=== PATIENT | male | born 1955 | race Caucasian/White ===

== ENCOUNTER 2022-01-03 10:42 | Emergency (ER) | payer MEDICARE, OTHER, SELFPAY ==
[2022-01-03 11:04] VITALS: BP 164/80; PULSE 58; RESP 16; TEMP 36.4; O2SAT 96; BMI 36.2
--- NOTE | 2022-01-03 11:50 | W.ED.ABDPA2 ---
Documented by User: JO Belle 01/04/22 07:31 HPI - Abdominal Pain General: Chief Complaint: Abdominal Pain Stated Complaint: n/v, sent by urgent care Time Seen by Provider: 01/03/22 11:14 History of Present Illness: Patient is a 66 male who comes to the ED with abdominal pain. Symptoms started this morning when he woke up. He felt pain in his left lower quadrant of the abdomen. Pain has progressed throughout the morning. He rates the pain currently a 7 out of 10. Pain radiates from the left lower quadrant into left lower back. He also started developing some nausea and vomiting this morning as well. He has not eaten anything this morning and says he threw up just bile. He has never had any abdominal surgeries. Denies any dysuria or hematuria. Denies any past kidney stones. Associated Symptoms: Reports nausea and vomiting; Denies chills, constipation, diarrhea, dysuria, fever(s), hematochezia and hematuria Review of Systems Const: Denies: fever(s), chills or fatigue Eyes: Denies: change in vision or eye discomfort ENMT: Denies: throat pain, odynophagia, nasal discharge or nasal congestion Card: Denies: chest pain, palpitations, edema, swelling of feet/ankles, dyspnea on exertion or orthopnea Resp: Denies: dyspnea, productive cough or non-productive cough GI: Reports: abdominal pain (Left lower quadrant), nausea and vomiting; Denies: diarrhea, constipation or hematochezia : Denies: flank pain, difficulty urinating, dysuria or hematuria Musc: Denies: neck pain, back pain or extremity swelling Skin/Breast: Denies: rash or new lesions Neuro: Denies: headache(s), numbness in extremities or weakness in extremities [facility] ED PFSH: Medical History (Updated 01/04/22 @ 07:28 by JO Belle) No pertinent family history Surgical History (Updated 01/04/22 @ 07:28 by JO Belle) No pertinent past surgical history Physical Exam Const: COMMON NORMALS: patient oriented x3 and alert GENERAL APPEARANCE: cooperative HENMT: COMMON NORMALS: normocephalic HEAD & SCALP: normocephalic MOUTH: Normal oral and palatal mucosa present THROAT: posterior oropharynx normal and uvula midline Neck/C-Spine: COMMON NORMALS: supple GENERAL: Yes normal visual inspection Resp: COMMON NORMALS: normal respiratory effort, No retractions, No use of accessory muscles and clear to auscultation bilaterally AUSCULTATION: clear to auscultation bilaterally Cardio: COMMON NORMALS: regular rate, regular rhythm, S1 normal heart sound present, S2 normal heart sound present, No gallops present (Cardio), No clicks present (Cardio), No murmurs present (Cardio) and Peripheral pulses 2+ throughout RATE: regular rate RHYTHM: regular rhythm HEART SOUNDS: S1 normal heart sound present and S2 normal heart sound present PERIPHERAL PULSES: Peripheral pulses 2+ throughout GI: COMMON NORMALS: Normal to inspection, nondistended, normoactive bowel sounds present, Soft to palpation, non-tender and no masses PALPATION: Yes Soft to palpation : COMMON NORMALS: Yes no CVA tenderness BLADDER/KIDNEY EXAM: Yes no CVA tenderness Back/Pelvis: COMMON NORMALS: no CVA tenderness Extremity: COMMON NORMALS: normal to inspection Neuro: COMMON NORMALS: patient oriented x3 SENSORIUM/ORIENTATION: Yes alert GAIT: Yes Normal gait present Skin: GENERAL SKIN EXAM: dry skin Course Vital Signs: Vital signs: Vital Signs Temperature 97.5 F L 01/03/22 11:04 Pulse Rate 58 L 01/03/22 11:04 Respiratory Rate 16 01/03/22 12:34 Blood Pressure 164/80 01/03/22 11:04 Pulse Oximetry 96 01/03/22 11:04 Oxygen Delivery Me thod 01/03/22 11:04 MDM - Abdominal Pain Medical Decision Making Patient is a 66-year-old male comes to the ED with left lower abdominal pain that radiates to the left lower back. Symptoms started this morning endorse having some nausea and vomiting as well. Vitals are stable. Exam is benign patient has no abdominal tenderness or any CVA tenderness. Rest of exam is benign. UA shows a lot of blood, white blood cell count of 12.6 and the rest of CBC and CMP are unremarkable. CT the abdomen shows 2 obstructing left sided kidney stones measuring 4 mm. One is proximal and the other 1 is at the distal UVJ. Patient was given a dose of morphine and his pain was well controlled. I placed an order with case management for patient be referred to Dr. Casiano for follow-up on kidney stones. Patient was stable for discharge home and sent home with a prescription for hydrocodone for acute pain, naproxen and Zofran. Strict return ED precautions given. Patient understood and agreed with plan. Lab Data I reviewed the patient's lab results. : 01/03/22 12:49 01/03/22 12:49 Labs/Radiology: Radiology Impressions Abdomen/Pelvis CT 01/03/22 12:34 IMPRESSION: 1. Obstructing LEFT proximal ureteral calculus measuring 4.2 mm. Additional obstructing LEFT distal UVJ calculus measuring 4.1 mm. 2. Mild LEFT hydronephrosis with inflammatory stranding about the LEFT kidney. 3. Numerous tiny dependent calculi within the bladder. 4. Enlarged prostate measuring 4.2 x 5.2cm. Correlation PSA. 5. Normal appendix in the RIGHT lower quadrant. 6. Small esophageal hiatal hernia. Notified JO Belle at 01/03/2022 1:35 PM. Laboratory Results WBC 12.6 10^3/uL (4.0-10.0) H 01/03/22 12:49 RBC 5.54 10^6/uL (4.1-5.3) H 01/03/22 12:49 Hgb 16.5 g/dL (11.7-16.6) 01/03/22 12:49 Hct 51.3 % (42.0-52.0) 01/03/22 12:49 MCV 92.6 fl (80-94) 01/03/22 12:49 MCH 29.8 pg (28.0-34.0) 01/03/22 12:49 MCHC 32.2 g/dL (30.0-36.0) 01/03/22 12:49 RDW 13.3 % (12.1-15.1) 01/03/22 12:49 Plt Count 265 10^3/cmm (130-400) 01/03/22 12:49 MPV 9.6 fL (7.4-10.4) 01/03/22 12:49 Neut % (Auto) 85.7 % 01/03/22 12:49 Lymph % (Auto) 9.3 % 01/03/22 12:49 Kinney % (Auto) 3.9 % 01/03/22 12:49 Eos % (Auto) 0.1 % 01/03/22 12:49 Baso % (Auto) 0.4 % 01/03/22 12:49 Neut # (Auto) 10.78 10^3/uL (1.8-7.7) H 01/03/22 12:49 Lymph # (Auto) 1.2 10^3/uL (0.8-4.8) 01/03/22 12:49 Kinney # (Auto) 0.5 10^3/uL (0.2-0.9) 01/03/22 12:49 Eos # (Auto) 0.0 10^3/uL (0.0-0.8) 01/03/22 12:49 Baso # (Auto) 0.1 10^3/uL (0.0-0.1) 01/03/22 12:49 Nucleated RBC % (auto) 0 % 01/03/22 12:49 Nucleated RBCs # 0.0 /100WBC 01/03/22 12:49 Sodium 135 mmol/L (136-145) L 01/03/22 12:49 Potassium 5.0 mmol/L (3.5-5.1) 01/03/22 12:49 Chloride 105 mmol/L (98-107) 01/03/22 12:49 Carbon Dioxide 17 mmol/L (22-29) L 01/03/22 12:49 Anion Gap 18.0 (5-19) 01/03/22 12:49 BUN 23 mg/dL (8-23) 01/03/22 12:49 Creatinine 1.2 mg/dL (0.7-1.2) 01/03/22 12:49 GFR Calculation 60.2 mL/min (90-130) L 01/03/22 12:49 Glucose 114 mg/dL (65-115) 01/03/22 12:49 Calculated Osmolality 285 mOsm/kg (285-295) 01/03/22 12:49 Calcium 10.3 mg/dL (8.5-10.5) 01/03/22 12:49 Total Bilirubin 0.6 mg/dL (0.15-1.2) 01/03/22 12:49 AST 35 U/L (0-40) 01/03/22 12:49 ALT 38 U/L (0-41) 01/03/22 12:49 Alkaline Phosphatase 104 U/L (40-130) 01/03/22 12:49 Total Protein 8.1 g/dL (6.6-8.7) 01/03/22 12:49 Albumin 4.1 g/dL (3.5-5.2) 01/03/22 12:49 Globulin 4.0 g/dL (1.3-4.6) 01/03/22 12:49 Lipase 47 U/L (13-60) 01/03/22 12:49 Urine Color Yellow (Yellow) 01/03/22 11:31 Urine Appearance Clear (CLEAR) 01/03/22 11:31 Urine pH 5 (5-7) 01/03/22 11:31 Ur Specific [place] 1.025 (1.005-1.030) 01/03/22 11:31 Urine Protein Trace (Negative) 01/03/22 11:31 Urine Glucose (UA) Norm (Normal) 01/03/22 11:31 Urine Ketones Negative (Negative) 01/03/22 11:31 Urine Blood 3+ (Negative) H 01/03/22 11:31 Urine Nitrate Negative (Negative) 01/03/22 11:31 Urine Bilirubin 1+ (Negative) H 01/03/22 11:31 Urine Urobilinogen Norm mg/dL (Negative) 01/03/22 11:31 Ur Leukocyte Esterase Negative (Negative) 01/03/22 11:31 Urine RBC 25-40 /hpf (0-2) H 01/03/22 11:31 Urine WBC 5-10 /hpf (0-5) H 01/03/22 11:31 Ur Squamous Epith Cells 0-4 /hpf (0-5) H 01/03/22 11:31 Amorphous Sediment Not Reportable 01/03/22 11:31 Urine Bacteria 4+ /hpf (NONE) H 01/03/22 11:31 Discharge Plan Discharge Patient Disposition: Home Clinical Impression: Kidney stone on left side Condition: Stable Prescriptions: New naproxen 500 mg tablet 500 mg PO BID PRN (Reason: pain) Qty: 20 0RF ondansetron 4 mg tablet,disintegrating 4 mg PO Q8H PRN (Reason: nausea and vomiting) Qty: 15 0RF No Action levothyroxine [Synthroid] 75 mcg tablet 75 mcg PO DAILY meloxicam 7.5 mg tablet 7.5 mg PO DAILY Discharge Orders: Discharge ED (Routine); Ordered 01/03/22 Ordered By: Kt Frazier Discharge Diet: Regular Discharge Activity: Increase activity as tolerated Patient Instructions: Kidney Stones (ED), Opioid Safety Activity Restrictions/Additional Instructions: Follow-up with medical provider as directed. Case management should be contacting you in the next several days to set up an appointment with Dr. Casiano the urologist. Strain urine to catch stone and drink lots of fluid to stay hydrated and help pass stone. Take medications as prescribed. You can take ibuprofen or Aleve for any pain or fevers. Return to the ER or your medical provider if condition worsens. Please read and understand discharge instructions. If any questions, please ask. Coding Level of Care Code ED Tower Technician for Chg Fwd Exam Comprehensive Documented by User: Maynor Feliciano DO 01/05/22 06:45 HPI - Abdominal Pain General: Chief Complaint: Abdominal Pain Stated Complaint: n/v, sent by urgent care Time Seen by Provider: 01/03/22 11:14 [facility] ED PFSH: Medical History (Updated 01/04/22 @ 07:28 by JO Belle) No pertinent family history Surgical History (Updated 01/04/22 @ 07:28 by JO Belle) No pertinent past surgical history Course Vital Signs: Vital signs: Vital Signs Temperature 97.5 F L 01/03/22 11:04 Pulse Rate 58 L 01/03/22 11:04 Respiratory Rate 16 01/03/22 12:34 Blood Pressure 164/80 01/03/22 11:04 Pulse Oximetry 96 01/03/22 11:04 Oxygen Delivery Me thod 01/03/22 11:04 MDM - Abdominal Pain Medical Decision Making Patient is a 66-year-old male comes to the ED with left lower abdominal pain that radiates to the left lower back. Symptoms started this morning endorse having some nausea and vomiting as well. Vitals are stable. Exam is benign patient has no abdominal tenderness or any CVA tenderness. Rest of exam is benign. UA shows a lot of blood, white blood cell count of 12.6 and the rest of CBC and CMP are unremarkable. CT the abdomen shows 2 obstructing left sided kidney stones measuring 4 mm. One is proximal and the other 1 is at the distal UVJ. Patient was given a dose of morphine and his pain was well controlled. I placed an order with case management for patient be referred to Dr. Casiano for follow-up on kidney stones. Patient was stable for discharge home and sent home with a prescription for hydrocodone for acute pain, naproxen and Zofran. Strict return ED precautions given. Patient understood and agreed with plan. Chart reviewed and patient discussed with midlevel. Agree with assessment and plan. Lab Data : 01/03/22 12:49 01/03/22 12:49 Labs/Radiology: Radiology Impressions Abdomen/Pelvis CT 01/03/22 12:34 IMPRESSION: 1. Obstructing LEFT proximal ureteral calculus measuring 4.2 mm. Additional obstructing LEFT distal UVJ calculus measuring 4.1 mm. 2. Mild LEFT hydronephrosis with inflammatory stranding about the LEFT kidney. 3. Numerous tiny dependent calculi within the bladder. 4. Enlarged prostate measuring 4.2 x 5.2cm. Correlation PSA. 5. Normal appendix in the RIGHT lower quadrant. 6. Small esophageal hiatal hernia. Notified JO Belle at 01/03/2022 1:35 PM. Laboratory Results WBC 12.6 10^3/uL (4.0-10.0) H 01/03/22 12:49 RBC 5.54 10^6/uL (4.1-5.3) H 01/03/22 12:49 Hgb 16.5 g/dL (11.7-16.6) 01/03/22 12:49 Hct 51.3 % (42.0-52.0) 01/03/22 12:49 MCV 92.6 fl (80-94) 01/03/22 12:49 MCH 29.8 pg (28.0-34.0) 01/03/22 12:49 MCHC 32.2 g/dL (30.0-36.0) 01/03/22 12:49 RDW 13.3 % (12.1-15.1) 01/03/22 12:49 Plt Count 265 10^3/cmm (130-400) 01/03/22 12:49 MPV 9.6 fL (7.4-10.4) 01/03/22 12:49 Neut % (Auto) 85.7 % 01/03/22 12:49 Lymph % (Auto) 9.3 % 01/03/22 12:49 Kinney % (Auto) 3.9 % 01/03/22 12:49 Eos % (Auto) 0.1 % 01/03/22 12:49 Baso % (Auto) 0.4 % 01/03/22 12:49 Neut # (Auto) 10.78 10^3/uL (1.8-7.7) H 01/03/22 12:49 Lymph # (Auto) 1.2 10^3/uL (0.8-4.8) 01/03/22 12:49 Kinney # (Auto) 0.5 10^3/uL (0.2-0.9) 01/03/22 12:49 Eos # (Auto) 0.0 10^3/uL (0.0-0.8) 01/03/22 12:49 Baso # (Auto) 0.1 10^3/uL (0.0-0.1) 01/03/22 12:49 Nucleated RBC % (auto) 0 % 01/03/22 12:49 Nucleated RBCs # 0.0 /100WBC 01/03/22 12:49 Sodium 135 mmol/L (136-145) L 01/03/22 12:49 Potassium 5.0 mmol/L (3.5-5.1) 01/03/22 12:49 Chloride 105 mmol/L (98-107) 01/03/22 12:49 Carbon Dioxide 17 mmol/L (22-29) L 01/03/22 12:49 Anion Gap 18.0 (5-19) 01/03/22 12:49 BUN 23 mg/dL (8-23) 01/03/22 12:49 Creatinine 1.2 mg/dL (0.7-1.2) 01/03/22 12:49 GFR Calculation 60.2 mL/min (90-130) L 01/03/22 12:49 Glucose 114 mg/dL (65-115) 01/03/22 12:49 Calculated Osmolality 285 mOsm/kg (285-295) 01/03/22 12:49 Calcium 10.3 mg/dL (8.5-10.5) 01/03/22 12:49 Total Bilirubin 0.6 mg/dL (0.15-1.2) 01/03/22 12:49 AST 35 U/L (0-40) 01/03/22 12:49 ALT 38 U/L (0-41) 01/03/22 12:49 Alkaline Phosphatase 104 U/L (40-130) 01/03/22 12:49 Total Protein 8.1 g/dL (6.6-8.7) 01/03/22 12:49 Albumin 4.1 g/dL (3.5-5.2) 01/03/22 12:49 Globulin 4.0 g/dL (1.3-4.6) 01/03/22 12:49 Lipase 47 U/L (13-60) 01/03/22 12:49 Urine Color Yellow (Yellow) 01/03/22 11:31 Urine Appearance Clear (CLEAR) 01/03/22 11:31 Urine pH 5 (5-7) 01/03/22 11:31 Ur Specific [place] 1.025 (1.005-1.030) 01/03/22 11:31 Urine Protein Trace (Negative) 01/03/22 11:31 Urine Glucose (UA) Norm (Normal) 01/03/22 11:31 Urine Ketones Negative (Negative) 01/03/22 11:31 Urine Blood 3+ (Negative) H 01/03/22 11:31 Urine Nitrate Negative (Negative) 01/03/22 11:31 Urine Bilirubin 1+ (Negative) H 01/03/22 11:31 Urine Urobilinogen Norm mg/dL (Negative) 01/03/22 11:31 Ur Leukocyte Esterase Negative (Negative) 01/03/22 11:31 Urine RBC 25-40 /hpf (0-2) H 01/03/22 11:31 Urine WBC 5-10 /hpf (0-5) H 01/03/22 11:31 Ur Squamous Epith Cells 0-4 /hpf (0-5) H 01/03/22 11:31 Amorphous Sediment Not Reportable 01/03/22 11:31 Urine Bacteria 4+ /hpf (NONE) H 01/03/22 11:31 Discharge Plan Discharge Patient Disposition: Home Clinical Impression: Kidney stone on left side Condition: Stable Prescriptions: New naproxen 500 mg tablet 500 mg PO BID PRN (Reason: pain) Qty: 20 0RF ondansetron 4 mg tablet,disintegrating 4 mg PO Q8H PRN (Reason: nausea and vomiting) Qty: 15 0RF No Action levothyroxine [Synthroid] 75 mcg tablet 75 mcg PO DAILY meloxicam 7.5 mg tablet 7.5 mg PO DAILY Discharge Orders: Discharge ED (Routine); Ordered 01/03/22 Ordered By: Kt Frazier Discharge Diet: Regular Discharge Activity: Increase activity as tolerated Patient Instructions: Kidney Stones (ED), Opioid Safety Activity Restrictions/Additional Instructions: Follow-up with medical provider as directed. Case management should be contacting you in the next several days to set up an appointment with Dr. Casiano the urologist. Strain urine to catch stone and drink lots of fluid to stay hydrated and help pass stone. Take medications as prescribed. You can take ibuprofen or Aleve for any pain or fevers. Return to the ER or your medical provider if condition worsens. Please read and understand discharge instructions. If any questions, please ask. Coding Level of Care Code ED Tower Technician for Pauly Fwd Exam Comprehensive
[2022-01-03 12:34] VITALS: RESP 16
[2022-01-03] MEDS: morphine 4 mg/mL SDV 1 mL IM (12:34)
--- NOTE | 2022-01-03 12:34 | CT_ITS ---
WS: [id number] CT ABDOMEN PELVIS TECHNIQUE: Noncontrast CT of the abdomen and pelvis with coronal and sagittal reformatted images. CLINICAL INFORMATION: LLQ abdominal pain COMPARISON: None. DLP: 1360.[address] scans at [facility] use at least one of these dose optimization techniques: automated e xposure control; mA and/or kV adjustment per patient size (includes targeted exams where dose is matc hed to clinical indication); or iterative reconstruction. FINDINGS: Bibasilar atelectasis. Small esophageal hiatal hernia. Noncontrast liver is normal. Gallbladder appea rs normal. Noncontrast pancreas is unremarkable. Normal noncontrast spleen. Adrenal glands are normal . Obstructing LEFT proximal ureteral calculus measuring 4.2 mm with mild LEFT hydronephrosis. Additio nal calculus in the distal LEFT ureter near the UVJ measuring 4.1 mm. Numerous small calculi in the d ependent portion of the bladder. Enlarged calcified prostate with indentation on the bladder. Heterogeneous prostate measures 4.2 x 5. 2 CM. Normal appendix in the RIGHT lower quadrant. Fat-containing umbilical hernia. Normal caliber ab dominal aorta. Fat-containing inguinal hernias RIGHT greater than LEFT. No abdominal lymphadenopathy. No inguinal lymphadenopathy. Mild lumbar curve. Hypertrophic changes thoracic spine. Disc space narrowing worse at L3-L4 vacuum di sc phenomenon. CT/CT abdomen pelvis wo con [id number] IMPRESSION: 1. Obstructing LEFT proximal ureteral calculus measuring 4.2 mm. Additional ob structing LEFT distal UVJ calculus measuring 4.1 mm. 2. Mild LEFT hydronephrosis with inflammatory stranding about the LEFT kidney. 3. Numerous tiny dependent calculi within the bladder. 4. Enlarged prostate measuring 4.2 x 5.2cm. Correlation PSA. 5. Normal appendix in the RIGHT lower quadrant. 6. Small esophageal hiatal hernia. Notified JO Belle at 01/03/2022 1:35 PM.
[2022-01-03] MEDS: ondansetron 2 mg/ML SDV 2 mL 4 MG IM (12:35)
[2022-01-03 12:53] LABS: Basophils # 0.1 10^3/uL (0.0-0.1); Basophils % 0.4 %; Eosinophils % 0.1 %; Hematocrit 51.3 % (42.0-52.0); Hemoglobin 16.5 g/dL (11.7-16.6); Lymphocytes # 1.2 10^3/uL (0.8-4.8); Lymphocytes % 9.3 %; Mean Corpuscular HGB Conc 32.2 g/dL (30.0-36.0); Mean Corpuscular Hemoglobin 29.8 pg (28.0-34.0); Mean Corpuscular Volume 92.6 fl (80-94); Mean Platelet Volume 9.6 fL (7.4-10.4); Monocytes # 0.5 10^3/uL (0.2-0.9); Monocytes % 3.9 %; Neutrophils # 10.78 10^3/uL (1.8-7.7); Neutrophils % 85.7 %; Nucleated Red Blood Cells % 0 %; Platelet Count 265 10^3/cmm (130-400); Red Blood Count 5.54 10^6/uL (4.1-5.3); Red Cell Distribution Width 13.3 % (12.1-15.1); White Blood Count 12.6 10^3/uL (4.0-10.0)
[2022-01-03 12:55] LABS: Glucose Urine UA Norm (Normal); Ketones Urine Negative (Negative); Protein Urine Trace (Negative); Specific Gravity, Urine 1.025 (1.005-1.030); Urine Appearance Clear (CLEAR); Urine Color Yellow (Yellow); pH Urine 5 (5-7)
[2022-01-03 12:56] LABS: Add Urine Microscopic? YES; Bilirubin Urine 1+ (Negative); Blood Urine 3+ (Negative); Leukocyte Esterase Urine Negative (Negative); Nitrate Urine Negative (Negative); Urobilinogen Urine Norm (Negative)
[2022-01-03 12:57] LABS: Add Urine Culture? Yes
[2022-01-03 12:58] LABS: Bacteria Urine 4+ /hpf; RBC Urine 25-40 /hpf (0-2); Squamous Epithelial Cell Urine 0-4 /hpf (0-5)
[2022-01-03 13:13] LABS: Albumin Level 4.1 g/dL (3.5-5.2); Alkaline Phosphatase 104 U/L (40-130); Blood Urea Nitrogen 23 mg/dL (8-23); Calcium 10.3 mg/dL (8.5-10.5); Carbon Dioxide 17 mmol/L (22-29); Chloride 105 mmol/L (98-107); Glomerular Filtration Rate 60.2 mL/min (90-130); Glucose 114 mg/dL (65-115); Lipase 47 U/L (13-60); Osmolality Calculated 285 mOsm/kg (285-295); Sodium 135 mmol/L (136-145); Total Bilirubin 0.6 mg/dL (0.15-1.2); Total Protein 8.1 g/dL (6.6-8.7)
[2022-01-03 13:18] LABS: Alanine Aminotransferase 38 U/L (0-41); Aspartate Amino Transferase 35 U/L (0-40)
--- NOTE | 2022-01-03 14:04 | PC.SOCIAL ---
Addendum entered by Sunitha Harris 02/09/22 13:32: Patient had a follow up appointment scheduled with urology - patient did attend appointment. Original Note: Urology Referral Referral sent to [facility] urology clinic, clinic to contact patient with appointment date and time.
== END 2022-01-03 14:02 | disposition home or self-care (01) ==
PROVIDERS: Emergency Provider Physician Assistant
DX: N20.0 Calculus of kidney (principal)
CPT/HCPCS: 74176; 80053; 81001; 83690; 85025; 87086; 96372; 99285; J2270; J2405

== ENCOUNTER 2022-01-05 13:08 | Outpatient (CLI) | payer MEDICARE, OTHER, SELFPAY ==
--- NOTE | 2022-01-05 13:20 | XR_ITS ---
WS: [id number] Exam: XR KUB [id number] Date/Time of Exam: 01/05/2022 1:21 PM Reason For Exam: stones No bowel obstruction or free air. Nonspecific bilateral pelvic calcifications. No sign of organ enlar gement. Nonacute bowel gas pattern. Degenerative changes and spondylosis of the lumbar spine. Bony ch anges in the pelvis to suggest diffuse idiopathic skeletal hyperostosis. There may be early changes o f ankylosing spondylitis in the visualized lower thoracic and upper lumbar spine. The SI joints are p artially fused. XR/XR KUB [id number] IMPRESSION: 1. No acute abdominal process noted. 2. Bony changes that may indicate ankylosing spondylitis and diffuse idiopathic skeletal hyperostosis.
== END 2022-01-05 13:09 | disposition home or self-care (01) ==
LOC: RAD 13:11
PROVIDERS: PCP Family Medicine; Visit Provider Urology
DX: N20.2 Calculus of kidney with calculus of ureter
CPT/HCPCS: 74018; 81003; 99203

== ENCOUNTER 2022-01-26 12:46 | Outpatient (CLI) | payer MEDICARE, OTHER, SELFPAY ==
--- NOTE | 2022-01-26 12:55 | XR_ITS ---
WS: [id number] EXAMINATION: XR KUB [id number] REASON FOR EXAM: Stones COMPARISON: 01/05/2022 ORDER DATE: 01/26/2022 12:57 PM FINDINGS: There is a nonspecific colonic gas pattern with scattered fecal content and gas. There is no sign of significant small bowel dilation. 2 Millimeter calcification superimposes the lower pole of the righ t kidney, possible similar calcification on the left. Moderate degenerative spine changes with disc n arrowing. XR/XR KUB [id number] IMPRESSION: Possible small renal calculi
== END 2022-01-26 12:47 | disposition home or self-care (01) ==
LOC: RAD 12:48
PROVIDERS: PCP Family Medicine; Visit Provider Urology
DX: N20.0 Calculus of kidney (principal)
CPT/HCPCS: 74018; 99214

== ENCOUNTER 2022-02-02 05:45 | Day surgery (SDC) | payer MEDICARE, OTHER, SELFPAY ==
[2022-02-01 10:46] VITALS: BMI 35.6
--- NOTE | 2022-02-01 11:09 | P.ANESASSM_ITS ---
Pre-Anesthetic Assessment Height/Weight: Height 1.91 m Weight 129.274 kg Operation Date: 02/02/22 08:35 Proposed Procedures p CYSTOLITHALOPAXY LEFT RETROGRADE PYELOGRAM 57593 07014 MODIFIER 26,N21.0,N20.9(Not Applicable) - Maximo Casiano MD s Cystoscopy(Not Applicable) - Maximo Casiano MD s Retrograde Pyelogram(Left) - Maximo Casiano MD Familial anesthetic complications: Patient states he has deviated trachea and an anesthesiologist was unable to place an ETT for an ear procedure and they had to abort the procedure. Since then he's had to have all his procedures awake under local anesthetic. 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 Was told the tube wouldn't pass and he had very small structure. he did not require hospitalization after event d/t any airway trauma, no steroids, and no bleeding or sore throat. He is not sure if he was difficult to mask or not. He doesn't recall being told that he was difficult to mask Was Beta Dipak taken within 24 hours: N/A Was Clonidine taken within 24 hours: N/A Social No alcohol and No tobacco Exam alert, oriented x 3, clear to auscultation bilaterally and regular rate & rhythm Airway Dentition: full Pulmonary None reported CV/HEM None reported None reported Hepatic None reported GI None reported Metabolic Thyroid Disease Neuropsych None reported Anesthetic Plan ASA status: 3 Anesthesia: General Risk of > 500 ml blood loss (7ml/kg in children): No Other Pertinent Information If unable to use LMA for procedure, awake ETT may be required, consider spinal as well Medications/Allergies Home Medications Medication Instructions Recorded Confirmed Last Taken Type levothyroxine 75 mcg tablet 75 mcg PO DAILY 01/03/22 02/01/22 02/01/22 History (Synthroid) meloxicam 7.5 mg tablet 7.5 mg PO DAILY 01/03/22 02/01/22 02/01/22 History ascorbic acid (vitamin C) 1,000 mg 1 g PO DAILY 01/05/22 02/01/22 Unknown History capsule aspirin 81 mg tablet,delayed 81 mg PO DAILY 01/05/22 02/01/22 02/01/22 History release cholecalciferol (vitamin D3) 50 50 mcg PO DAILY 01/05/22 02/01/22 02/01/22 History mcg (2,000 unit) capsule tamsulosin 0.4 mg capsule 0.4 mg PO QDAY #30 caps 01/26/22 02/01/22 02/01/22 Rx Allergies Allergy/AdvReac Type Severity Reaction Status Date / Time hydrocodone Allergy ADR-Irritable/violent Verified 02/01/22 10:46 hiccups for days steroids Allergy Intermediate ADR-Irritab Uncoded 01/26/22 13:34 le/hiccups [facility] Anesthesia Medical History (Updated 02/01/22 @ 10:39 by Nakita Greer) No pertinent family history Urolithiasis Surgical History (Updated 02/01/22 @ 10:39 by Nakita Greer) No pertinent past surgical history Family History Father Dementia Mother , AT AGE 84 CHF (congestive heart failure) Social History Smoking and tobacco status: never smoked Alcohol intake: never Marital status: Current occupational status: employed History of recent travel: No Data Anesthesia Cardiac Studies: No Data to Display
--- NOTE | 2022-02-02 | XRR_ITS ---
PROCEDURE INFORMATION: Exam: XR Abdomen Exam date and time: 02/02/2022 6:12 AM Age: 66 years old Clinical indication: Screening exam; Other: Pre operatvie; Additional info: Renhal calculi TECHNIQUE: Imaging protocol: Radiologic exam of the abdomen. Views: Frontal supine view of the abdomen. 1 View. Total images: 1 COMPARISON: 1. CR XR KUB [id number] 01/26/2022 12:[address] abdomen pelvis wo con [id number] 01/03/2022 12:51 PM FINDINGS: Gastrointestinal tract: Bowel gas pattern is nondistended and nonobstructive. Vasculature: Incidental phleboliths noted. Bones/joints: Spinal degenerative changes are evident. Vague 5 mm density projecting adjacent to the tip of the left transverse process of L3 felt to represent ureteral calculus as seen on prior CT. XR/XR KUB [id number] IMPRESSION: 1. Vague 5 mm density projecting adjacent to the tip of the left transverse process of L3 felt to represent ureteral calculus as seen on prior CT. 2. Normal bowel gas pattern
[2022-02-02 06:04] VITALS: BP 141/85; PULSE 66; RESP 18; TEMP 36.6; O2SAT 95
[2022-02-02] MEDS: sodium chloride 0.9% 1,000 ML 30 ML IV (06:25)
--- NOTE | 2022-02-02 06:37 | P.ANESUD_ITS ---
Pre-Anesthetic Update Pre-Anesthetic Assessment: Date of Surgery/Procedure: 02/02/22 Preop Marzena gnosis: Cystolithiasis, left ureteral calculus Proposed Procedure: Operation Date: 02/02/22 07:00 Proposed Procedures p CYSTOLITHALOPAXY LEFT RETROGRADE PYELOGRAM 76356 38001 MODIFIER 26,N21.0,N20.9(Not Applicable) - Maximo Casiano MD s Cystoscopy(Not Applicable) - Maximo Casiano MD s Retrograde Pyelogram(Left) - Maximo Casiano MD Any changes to Pre-Anesthetic Assessment?: No Last Intake: Intake Last Liquid Date 02/01/22 Last Liquid Time 18:00 Last Solid Date 02/01/22 Last Solid Time 18:00 Vitals: Temperature 97.8 F 02/02/22 06:04 Temperature Source Temporal Artery S can 02/02/22 06:04 Pulse Rate 66 02/02/22 06:04 Respiratory Rate 18 02/02/22 06:04 Blood Pressure 141/85 02/02/22 06:04 Blood Pressure Mariah n 103 02/02/22 06:04 Pulse Oximetry 95 02/02/22 06:04 Oxygen Delivery Me thod 02/02/22 06:04 Exam: Pre-Anes Outpt Exam: alert, oriented x 3, clear to auscultation bilaterally and regular rate & rhythm Cardiac Studies: No Data to Display
--- NOTE | 2022-02-02 06:43 | P.HPUD_ITS ---
Surgery/Procedure H&P Update DATE OF PROCEDURE: February 02, 2022 DATE H&P PERFORMED: 01/26/22 H&P UPDATE INFORMATION: I have reviewed H&P completed within last 30 days, I have examined patient prior to procedure, No changes to prior documentation and H&P is in [facility] EMR on date indicated CHANGES TO PREVIOUS DOCUMENTATION: There is a hint of a calcification slightly higher than I would have expected based on the previous CT scan findings in the area of the left proximal ureter. He has not had any pain consistent with renal colic since he left the office. We will rely on the retrograde pyelogram. Ureteroscopy if necessary I reviewed these findings with the patient and his . Also discussed with anesthesia his concerns regarding difficult airway based on his prior experience. They have planned accordingly and are prepared PREOP DIAGNOSIS: Cystolithiasis, left ureteral calculus PLANNED PROCEDURE: Operation Date: 02/02/22 07:00 Proposed Procedures p CYSTOLITHALOPAXY LEFT RETROGRADE PYELOGRAM [id number] MODIFIER 26,N21.0,N20.9(Not Applicable) - Maximo Casiano MD s Cystoscopy(Not Applicable) - Maximo Casiano MD s Retrograde Pyelogram(Left) - Maximo Casiano MD
--- NOTE | 2022-02-02 06:54 | SC_ITS ---
WS: [id number] INTRAOPERATIVE TECHNIQUE: 5 Spot fluoroscopic images for intraoperative purposes. FLUOROSCOPY TIME: 45.2 seconds CLINICAL INFORMATION: stones COMPARISON: None. FINDINGS: LEFT distal ureteroscopy with filling defects in the distal ureter. Stent deployment. SC/C-arm FL for Urology IMPRESSION: Images obtained for intraoperative purposes.
[2022-02-02] MEDS: levofloxacin-dextrose 5 % 500 MG/100 ML PREMIX 100 MG IV (07:00)
--- NOTE | 2022-02-02 07:05 | P.OP_ITS ---
Operative Report Date of procedure: February 02, 2022 Pre-op diagnosis: Cystolithiasis, left ureteral calculus Post-op diagnosis: Cystolithiasis, left ureteral calculus Procedure done: 1. Cystoscopy removal of multiple bladder stones 2. LEFT retrograde ureteropyelogram 3. LEFT ureteroscopy, laser lithotripsy, stent (6 Montserratian by 30 cm double- pigtail without string) Specimens removed/disposition: 1. Bladder stones, many 2. Left ureteral stone fragment Pathology: Bladder stones Left ureteral stone fragments Surgeon: Oh Estimated blood loss: Minimal Urine output: Not measured Complications: None Findings: Anesthesia: MAC Condition: Stable Disposition: PACU Intraoperative findings: * About 10 small stones in the bladder. All were small enough to flush out of the bladder through the cystoscope * Retrograde pyelogram on the left showed: 2 filling defects in the left distal ureter and known proximal to that point. * 2 stones were fragmented with laser lithotripsy and a stent was left indwelling. * Easily bypassable bulbar urethral stricture. Did not require catheterization post Brief History: Mr. Hanson is a very pleasant 66-year-old white male who was recently diagnosed with a small left proximal ureteral stone causing typical renal colic and obstruction on CT scan. On follow-up in the clinic he was found to have multiple stones in the bladder also confirmed on the CT scan that appeared to be more consistent with chronic BPH/obstruction. Cystoscopy confirmed. I could not clearly see the stone in the left proximal ureter. Plan was to do cystolithiasis removal possible cystolitholapaxy and a left retrograde pyelogram and if the stone really was still in place then proceed with ureteroscopy laser lithotripsy. Patient has a history of difficult airway. Anesthesia was consulted before the procedure and is preparing for that with all appropriate measures. Procedure: After routine preoperative evaluation examination and obtaining of informed consent he was taken to the operating suite on 02/02/2022 where anesthesia was administered without difficulty. Appropriate timeout was performed, SCDs confirmed to be functioning, preoperative antibiotics administered, beta-donna protocol confirmed. Prepped and draped in usual sterile fashion in dorsolithotomy position paying careful attention to avoiding pressure points. 21 Montserratian cystoscope with 30 degree lens was introduced into the urethra meatus and advanced into the bladder to videoscopy. He was noted to have a bypassable bulbar urethral stricture bladder was systematically examined. >20 stones were seen in the bladder as expected and flushed through the scope without difficulty with use of the Ellik evacuator.. No more stones remained. An 8 [place]erratian cone-tip catheter was then intubated to the left ureteral orifice for left retrograde ureteropyelogram which demonstrated: There were 2 filling defects in the left distal ureter with some proximal dilation. Filling defects were consistent with stones. The area where this stone had been located on previous imaging was free of any filling defects. No other filling defects proximal to those distal ureteral stones were noted. The pyelocalyceal system did not appear to be significantly dilated. A flexible tip guidewire was then advanced up the left ureter bypassing the stones and curling in the area of the renal pelvis. Distal ureter was dilated with a 15 Montserratian 4 cm balloon with no waist at 6 abad. There was a tight area requiring 6 abad to open. First wire was secured to the drapes as a safety wire and a second wire was passed to facilitate passage of the ureteroscope. 2 stones were encountered in the distal ureter and fragmented completely with a 365 ?m thulium superpulse laser fiber. Most of the fragments flushed around the scope into the bladder. A basket was used to remove the remaining fragments of consequence. Mostly sand. Final passage revealed no fragments. The scope was passed all the way up to the UPJ. The bladder was cleared of the debris with an Ellik evacuator. A 6 [place]ian by 30 cm double-pigtail stent was advanced over the guidewire through the cystoscope into appropriate position as confirmed via fluoroscopy and cystoscopy. Stent was confirmed to be functioning. The urethra was examined as the scope was removed. It was mildly traumatized from passage of the scope at the site of the stricture but it was not severely bleeding; I did not feel that he needed to catheter. He tolerated procedure well without complications and was awakened in the operating room without difficulty and transferred to the PACU in stable condition. PLANS: 1. Anticipate discharge from 2. We will follow-up in about a week with cystoscopy and stent removal in the clinic
[2022-02-02 08:11] VITALS: BP 178/67; PULSE 65; RESP 20; TEMP 36.3; O2SAT 96
[2022-02-02 08:16] VITALS: BP 160/69; PULSE 66; RESP 18; O2SAT 97
[2022-02-02 08:21] VITALS: BP 149/79; PULSE 69; RESP 18; TEMP 36.7; O2SAT 97
[2022-02-02 08:30] VITALS: BP 134/57; PULSE 65; RESP 18; TEMP 36.4; O2SAT 94
--- NOTE | 2022-02-02 08:36 | PC.NURSE ---
spoke with efra in dr mg's office. states nurse will call pt with time
[2022-02-02 08:44] VITALS: BP 147/82; PULSE 59; RESP 18; O2SAT 96
--- NOTE | 2022-02-02 16:33 | ANE.PACU2 ---
Inpatient post-anesthesia follow up: Airway intact: Yes Vital signs: Temperature 97.6 F Pulse Rate 59 Respiratory Rate 18 Blood Pressure 147/82 Pulse Oximetry 96 Oxygen Delivery Me thod Room Air Oxygen Flow Rate Fraction of Inspir ed Oxygen Hydration adequate: Yes Nausea and vomiting: No Pain level: 1 Mental status: Baseline
[2022-02-07 14:04] LABS: Stone Source URETER
[2022-02-07 15:30] LABS: Stone Source BLADDER STONES
== END 2022-02-02 09:15 | disposition home or self-care (01) ==
PROVIDERS: PCP Family Medicine; Visit Provider Urology
PROC: 0TCB8ZZ Extirpation of Matter from Bladder, Via Natural or Artificial Opening Endoscopic (ICD-10-PCS; CPT 52356; principal; 2022-02-02 07:00)
PROC: 0TJB8ZZ Inspection of Bladder, Via Natural or Artificial Opening Endoscopic (ICD-10-PCS; CPT 52000; 2022-02-02 07:00)
PROC: (CPT 74420; 2022-02-02 07:00)
PROC: 0TJ98ZZ Inspection of Ureter, Via Natural or Artificial Opening Endoscopic (ICD-10-PCS; CPT 52351; 2022-02-02 07:00)
PROC: (CPT 52356; 2022-02-02 07:00)
PROC: (CPT 50605; 2022-02-02 07:00)
PROC: (CPT 52356; 2022-02-02 07:00)
DX: N20.1 Calculus of ureter (principal); Z79.82 Long term (current) use of aspirin
CPT/HCPCS: 52356; 74018; 76000; 82365; 88300; C2625; J1956; J2250; J2704; J3010; J7030

== ENCOUNTER 2022-02-09 14:10 | Outpatient (CLI) | payer MEDICARE, OTHER, SELFPAY ==
--- NOTE | 2022-02-09 14:50 | XR_ITS ---
WS: [id number] Exam: XR KUB [id number] Date/Time of Exam: 02/09/2022 2:57 PM Reason For Exam: STONE No bowel obstruction or free air. A double pigtail catheter is noted in the region of the left ureter . The stent appears to be in appropriate location. No sign of organ enlargement. Degenerative changes of the lumbar spine. Bony changes of the visualized spine and SI joints are suspicious for ankylosin g spondylitis. XR/XR KUB [id number] IMPRESSION: 1. Left-sided ureteral stent catheter appearing to be in appropriate location. 2. No acute abdominal finding. 3. Bony changes in the spine and SI joints suggesting ankylosing spondylitis.
== END 2022-02-09 14:11 | disposition home or self-care (01) ==
LOC: RAD 14:12
PROVIDERS: PCP Family Medicine; Visit Provider Urology
DX: N20.2 Calculus of kidney with calculus of ureter (principal); Z96.0 Presence of urogenital implants; N40.1 Benign prostatic hyperplasia with lower urinary tract symptoms; N21.0 Calculus in bladder
CPT/HCPCS: 52310; 74018; 81003; 99213

== ENCOUNTER → 2022-04-21 07:16 | Outpatient (BNVA) | payer MEDICARE, OTHER, SELFPAY | PROVIDERS: PCP Family Medicine; Visit Provider Urology | DX: N40.1 Benign prostatic hyperplasia with lower urinary tract symptoms (principal) | CPT/HCPCS: 51741; 51798; 81003; 99213 ==

== ENCOUNTER → 2022-12-21 09:09 | Outpatient (BNVA) | payer MEDICARE, OTHER, SELFPAY | PROVIDERS: PCP Nurse Practitioner; Visit Provider Nurse Practitioner | DX: E03.9 Hypothyroidism, unspecified (principal); E55.9 Vitamin D deficiency, unspecified; Z12.5 Encounter for screening for malignant neoplasm of prostate; Z13.6 Encounter for screening for cardiovascular disorders | CPT/HCPCS: 80053; 80061; 82306; 84439; 84443; 84481; 85025; G0103 ==

== ENCOUNTER → 2023-03-20 13:29 | Outpatient (BNVA) | payer MEDICARE, OTHER, SELFPAY | PROVIDERS: PCP Nurse Practitioner; Visit Provider Nurse Practitioner | DX: N40.1 Benign prostatic hyperplasia with lower urinary tract symptoms (principal); E03.9 Hypothyroidism, unspecified | CPT/HCPCS: 84443 ==

== ENCOUNTER → 2023-03-29 11:58 | Outpatient (BNVA) | payer MEDICARE, OTHER, SELFPAY | PROVIDERS: PCP Nurse Practitioner; Visit Provider Nurse Practitioner | DX: R10.9 Unspecified abdominal pain (principal); E03.8 Other specified hypothyroidism | CPT/HCPCS: 72072; 72100 ==

== ENCOUNTER 2023-04-18 07:31 | Outpatient (CLI) | payer MEDICARE, OTHER, SELFPAY ==
--- NOTE | 2023-04-18 09:00 | CT_ITS ---
WS: [id number] CT ABDOMEN AND PELVIS NONCONTRAST HISTORY: R10.9 - Unspecified abdominal pain TECHNIQUE: Imaging performed through the abdomen and pelvis. Coronal and sagittal reformats are submi tted. All CT scans at [facility] use at least one of these dose optimization techniques: auto mated exposure control; mA and/or kV adjustment per patient size (includes targeted exams where dose is matched to clinical indication); or iterative reconstruction. DLP: 1392.13 mGy.cm COMPARISON: 01/03/2022 Lower thorax: Hyperinflated lungs. There is a tiny area of groundglass attenuation at the lingula whi ch is stable since 01/03/2022. Heart is slightly enlarged. Small hiatal hernia. Liver: Normal size liver. No mass or bile duct dilatation. Gallbladder: Normal gallbladder. No pericholecystic fluid or cholelithiasis. No gallbladder wall thic kening. Pancreas: Normal size and attenuation. Normal pancreatic duct. No pancreatitis or mass. Spleen: Normal. Adrenal glands: Normal. No mass. Right kidney: Normal size kidney with no mass or hydronephrosis. Left kidney: Nonobstructing 2 mm calcifications. No mass. Aorta: Mild atherosclerosis abdominal aorta with no aneurysm. No free fluid, intraperitoneal air or significant lymphadenopathy. GI tract: Normal noncontrast imaging of the stomach, small bowel and colon. No obstruction or wall th ickening. Normal appendix. Abdominal wall: Small umbilical hernia contains fat only. Pelvis: An enlarged prostate encroaching into the urinary bladder. Central calcifications. There are several calcifications also within the dependent portion of the urinary bladder. The number of calcif ications is decreased since 01/03/2022. There is asymmetric thickening of the bladder wall towards th e RIGHT fundus. Bladder wall measures up to 10.8 mm. This should be further evaluated for possible ne oplasm. Bilateral patent inguinal canals containing fat only. Osseous structures: Straightening of the normal lumbar lordosis. Osteopenia. No fracture. Mild bilate ral hip joint arthritis. Fusion across the SI joints. IMPRESSION: 1. No hydronephrosis. 2. Nonobstructing 2 mm calcifications LEFT renal pelvis. 3. Marked prostate enlargement encroaching into the bladder. 4. Bladder calcifications are reidentified. The burden of calcifications in the bladder has decrease d since 01/03/2022. 5. There is asymmetric wall thickening involving the RIGHT urinary bladder towards the fundus this n eeds to be further evaluated for possible neoplasm. Cystoscopy recommended. 6. Osteopenia and SI joint fusion.
[2023-04-18] MEDS: iohexol 350 mg/mL 100 mL Btl PO (09:37)
== END 2023-04-18 07:32 | disposition home or self-care (01) ==
LOC: RAD 07:31
PROVIDERS: PCP Nurse Practitioner; Visit Provider Nurse Practitioner
DX: N20.0 Calculus of kidney (principal); N40.0 Benign prostatic hyperplasia without lower urinary tract symptoms; N32.89 Other specified disorders of bladder
CPT/HCPCS: 74176; Q9967

== ENCOUNTER → 2023-04-24 10:58 | Outpatient (BNVA) | payer MEDICARE, OTHER, SELFPAY | PROVIDERS: PCP Nurse Practitioner; Visit Provider Nurse Practitioner | DX: E03.8 Other specified hypothyroidism (principal); E78.1 Pure hyperglyceridemia | CPT/HCPCS: 80061; 84443 ==

== ENCOUNTER → 2023-06-15 14:14 | Outpatient (BNVA) | payer MEDICARE, OTHER, SELFPAY | PROVIDERS: PCP Nurse Practitioner; Visit Provider Nurse Practitioner | DX: N40.1 Benign prostatic hyperplasia with lower urinary tract symptoms (principal); E03.8 Other specified hypothyroidism | CPT/HCPCS: 84439; 84443; 84481 ==

== ENCOUNTER 2023-06-27 20:00 | Outpatient (CLI) | payer MEDICARE, OTHER, SELFPAY | END 2023-06-27 20:01 | disposition home or self-care (01) | LOC: SLEEP 06-28 03:32 | PROVIDERS: PCP Nurse Practitioner; Visit Provider Nurse Practitioner | DX: G47.33 Obstructive sleep apnea (adult) (pediatric) (principal); Z99.89 Dependence on other enabling machines and devices | CPT/HCPCS: 95811 ==

== ENCOUNTER → 2023-08-17 14:25 | Outpatient (BNVA) | payer MEDICARE, OTHER, SELFPAY | PROVIDERS: PCP Nurse Practitioner; Visit Provider Nurse Practitioner | DX: E03.8 Other specified hypothyroidism (principal); N40.1 Benign prostatic hyperplasia with lower urinary tract symptoms | CPT/HCPCS: 80048; 84439; 84443; 84481 ==

== ENCOUNTER → 2023-11-27 15:29 | Outpatient (BNVA) | payer MEDICARE, OTHER, SELFPAY | PROVIDERS: PCP Nurse Practitioner; Visit Provider Nurse Practitioner | DX: E03.8 Other specified hypothyroidism (principal); E78.1 Pure hyperglyceridemia | CPT/HCPCS: 80061; 84439; 84443; 84481 ==

== ENCOUNTER → 2024-02-12 15:46 | Outpatient (BNVA) | payer MEDICARE, OTHER, SELFPAY | PROVIDERS: PCP Nurse Practitioner; Visit Provider Nurse Practitioner | DX: E03.8 Other specified hypothyroidism (principal) | CPT/HCPCS: 84439; 84443; 84481 ==

== ENCOUNTER → 2024-04-29 15:49 | Outpatient (BNVA) | payer MEDICARE, OTHER, SELFPAY | PROVIDERS: PCP Nurse Practitioner; Visit Provider Nurse Practitioner | DX: N40.1 Benign prostatic hyperplasia with lower urinary tract symptoms (principal); E03.8 Other specified hypothyroidism | CPT/HCPCS: 84439; 84443; 84481 ==

== ENCOUNTER → 2024-07-22 16:44 | Outpatient (BNVA) | payer MEDICARE, OTHER, SELFPAY | PROVIDERS: PCP Nurse Practitioner; Visit Provider Nurse Practitioner | DX: E03.8 Other specified hypothyroidism (principal); E78.1 Pure hyperglyceridemia | CPT/HCPCS: 80053; 80061; 84439; 84443; 84481 ==

== ENCOUNTER → 2024-10-23 08:19 | Outpatient (BNVA) | payer MEDICARE, OTHER, SELFPAY | PROVIDERS: PCP Nurse Practitioner; Visit Provider Nurse Practitioner | DX: E03.8 Other specified hypothyroidism (principal) | CPT/HCPCS: 84439; 84443; 84481 ==